=== PATIENT | male | born 1965 | race Caucasian/White ===

== ENCOUNTER → 2020-12-03 | Day surgery (SDC) | payer OTHER ==
[~2020-12-03] MED LIST: ATORVASTATIN CA80 MG PO; FLOMAX0.4 MG PO; NORCO 5-325 TA1 EACH PO; ZOFRAN4 MG PO
[2020-12-03 09:20] LABS: HCT 50.9 % (42.0-52.0); MCH 30.1 pg (25.0-31.0); MCHC 35.4 g/dL (32.0-36.0); MCV 85.1 fL (78.0-100.0); MPV 10.2 fL (6.0-9.5); RBC 5.98 M/uL (4.70-6.00); RDW 13.2 % (11.5-14.0); WBC 6.8 K/uL (4.0-10.5)
[2020-12-03 09:43] LABS: ALBUMIN 4.5 g/dL (3.4-5.0); BILIRUBIN - TOTAL 1.9 mg/dL (0.2-1.0); BUN/CREAT RATIO (CALC) 10.4 RATIO; CREATININE 0.96 mg/dL (0.67-1.17); GLOBULIN (CALCULATION) 3.5 g/dL; POTASSIUM 4.1 mmol/L (3.5-5.1)
== END | disposition home or self-care (01) ==
LOC: FAS 08:14
PROVIDERS: Surgery
DX: Z12.11 Encounter for screening for malignant neoplasm of colon (principal); E78.5 Hyperlipidemia, unspecified; Z79.899 Other long term (current) drug therapy
CPT/HCPCS: 36415; 80053; J2704; J7120